=== PATIENT | female | born 2000 | race Caucasian/White ===

== ENCOUNTER 2022-06-02 22:43 | Emergency (ER) | payer SELFPAY ==
[~2022-06-02] VITALS: Ht 157.5 cm; Wt 48.1 kg
[2022-06-02 22:55] VITALS: BP 102/59
--- NOTE | 2022-06-02 22:58 | NUR ---
TO LOBBUY A/W BED AMBULATORY
--- NOTE | 2022-06-03 00:15 | NUR ---
PATIENT TO BE SEEN BY [facility] , NO RESPONSE PATIENT LEFT WITHOUT BEING SEEN BY DR. DR. BETANCUR. NO FURTHER CARE PROVIDED FOR PATIENT.
--- NOTE | 2022-06-03 00:20 | NUR ---
CALLED FOR THE SECOND TIME , NO RESPONSE
--- NOTE | 2022-06-03 00:25 | NUR ---
CALLED FOR THR THIRD TIME , NO RESPONSE
== END 2022-06-03 00:15 | disposition left against medical advice (07) ==
LOC: MED 22:43
DX: R51.9 Headache, unspecified (principal); Z53.21 Procedure and treatment not carried out due to patient leaving prior to being seen by health care provider